=== PATIENT | female | born 1990 | race Caucasian/White ===

== ENCOUNTER 2018-07-02 06:54 | Day surgery (SDC) | payer BC ==
[~2018-07-02 06:54] MED LIST: DEXAMETHASONE 4 MG/ML 1 ML INJ; FENTAnyl 50 MCG/ML VIAL; GLYCOPYRROLATE 0.4 MG INJ; LIDOCAINE 2% (SDV) 5 ML INJ; MIDAZOLAM 1 MG/ML 2 ML INJ; NALOXONE (0.4 MG/ML) INJ IV; NEOSTIGMINE 3 MG/3 ML SYRINGE; ONDANSETRON 4 MG INJ; PROPOFOL 0 ML; ROCURONIUM 50 MG INJ
[2018-07-02] MEDS ORDERED: CEFAZOLIN 2 GM/50 ML (PMX) 50 ML IVPB (07:00)
[2018-07-02] MEDS ORDERED: LACTATED RINGER'S 1,000 ML IV (08:00)
[2018-07-02] MEDS ORDERED: BUPIVACAINE 0.5% (SDV) 30 ML INJ (09:04)
[2018-07-02] MEDS ORDERED: LIDOCAINE 2% (MDV) 20 ML INJ (09:04)
[2018-07-02] MEDS ORDERED: FENTAnyl 50 MCG/ML VIAL IV ×3 (09:30)
[2018-07-02] MEDS ORDERED: PROCHLORPERAZINE 10 MG INJ IV (09:30)
[2018-07-02] MEDS ORDERED: HYDROmorphONE 1 MG/5 ML IV SYRINGE IV ×3 (09:30)
[2018-07-02] MEDS ORDERED: OXYCODONE/ACETAMINOPHEN (5/325) TAB PO (09:30)
[2018-07-02] MEDS ORDERED: MEPERIDINE 25 MG INJ IV (09:30)
[2018-07-02] MEDS ORDERED: ONDANSETRON 4 MG INJ IV (09:30)
[2018-07-02] MEDS ORDERED: DIPHENHYDRAMINE 50 MG INJ IV (09:30)
[2018-07-02] MEDS ORDERED: MIDAZOLAM 1 MG/ML 2 ML INJ (09:35)
[2018-07-02] MEDS ORDERED: PROPOFOL 20 ML ×2 (09:37→09:49)
[2018-07-02] MEDS ORDERED: DEXAMETHASONE 4 MG/ML 1 ML INJ (09:38)
[2018-07-02] MEDS ORDERED: FENTAnyl 50 MCG/ML VIAL (09:42)
[2018-07-02] MEDS ORDERED: CEFAZOLIN 1 GM INJ (09:48)
== END 2018-07-02 11:46 | disposition home or self-care (01) ==
LOC: SDS 06:54
DX: Q69.2 Accessory toe(s) (principal); M79.671 Pain in right foot
CPT/HCPCS: 28344; 84703; 88305